=== PATIENT | female | born 1995 | race African-American/Black ===

== ENCOUNTER 2019-10-31 22:12 | Emergency (ER) | payer OTHER ==
[2019-10-31 22:34] VITALS: BP 135/75
--- NOTE | 2019-11-01 00:36 | ER Document Report ---
HPI - HPI Time Seen by Provider: 10/31/19 22:55 Pain Level: 1 Notes: Otherwise healthy 24-year-old female presenting to the emergency department with concern for scratchiness to her throat. Patient reports she ate dinner tonight including shrimp and then developed scratchiness in her throat. She states she has eaten shrimp multiple times in the past and has no known allergies. She states that she told her about her scratchiness to her throat or her insisted she come to the emergency department. Patient has no difficulty swallowing, difficulty speaking no hives and no acute complaints at this time. - ROS Systems Reviewed and Negative: Yes All other systems reviewed and negative - EENT Notes: Throat feels scratchy - REPRODUCTIVE Reproductive: DENIES: : Past Medical History - General Information source: Patient - Social History Smoking Status: Current Every Day Smoker Frequency of alcohol use: None Drug Abuse: None Family History: Reviewed & Not Pertinent Patient has homicidal ideation: No - Medical History Medical History: Negative Surgical Hx: Negative Vertical Provider Document - CONSTITUTIONAL Notes: PHYSICAL EXAMINATION: GENERAL: Well-appearing, well-nourished and in no acute distress. HEAD: Atraumatic, normocephalic. EYES: Pupils equal round extraocular movements intact, conjunctiva are normal. ENT: Nares patent, oropharynx mildly erythematous but without exudates or tonsillar swelling. Uvula midline, no posterior oropharynx swelling noted. NECK: Normal range of motion LUNGS: No respiratory distress, lung sounds clear and equal bilaterally. Musculoskeletal: Normal range of motion NEUROLOGICAL: Normal speech, normal gait. PSYCH: Normal mood, normal affect. SKIN: Warm, Dry, normal turgor, no rashes or lesions noted. Course - Re-evaluation Re-evalutation: Patient appears well, nontoxic. Rapid strep is negative. This does not appear to be an acute allergic reaction. I did advise patient regarding taking Benadryl in case she develops a rash or hives. Strict ED return precautions in case she develops difficulty swallowing or hoarse voice. Patient verbalizes understanding and agreement this plan. - Vital Signs Vital signs: Temp Pulse Resp BP Pulse Ox 98.8 F 83 20 135/75 H 99 10/31/19 22:32 10/31/19 22:32 10/31/19 22:32 10/31/19 22:32 10/31/19 22:32 Discharge - Discharge Clinical Impression: Sore throat Condition: Stable Disposition: HOME, SELF-CARE Additional Instructions: The rapid strep was negative. A throat culture is pending. Please take Benadry l 50 mg every 6 hours if you start to develop any symptoms of allergic reaction. Please return to the emergency department with any new or worsening symptoms.
--- NOTE | 2019-11-01 01:07 | EKG REPORT ---
SEVERITY:- BORDERLINE ECG - SINUS RHYTHM INFERIOR Q WAVES, PROBABLY NORMAL VARIATION BORDERLINE T ABNORMALITIES, ANTERIOR LEADS : Confirmed by: Micaela Farmer MD 01-Nov-2019 01:06:51
== END 2019-11-01 00:40 | disposition home or self-care (01) ==
LOC: ER 22:12
DX: J02.9 Acute pharyngitis, unspecified (principal); F17.200 Nicotine dependence, unspecified, uncomplicated
CPT/HCPCS: 87070; 87880; 93005; 93010; 99283

== ENCOUNTER 2020-01-28 09:25 | Emergency (ER) | payer OTHER ==
--- NOTE | 2020-01-28 09:40 | ER Document Report ---
ED General - General Stated Complaint: SHORTNESS OF BREATH Time Seen by Provider: 01/28/20 09:39 - HPI Notes: 24-year-old female with a history of asthma presents to the emergency room with complaints of worsening shortness of breath that was diagnosed on January 23 with COVID, was treated with azithromycin and prednisone. Patient states that she was experiencing some shortness of breath on Thursday, she was then diagnosed with COVID-19. patient states that she is noticed some increased shortness of breath at night, states her home nebulizer is in [place] and she does not have a rescue inhaler on her person because her prescription ran out. patient is alternate between Tylenol and ibuprofen as well as prednisone and azithromycin. She states she came to the emergency room for a breathing treatment that further evaluation of her shortness of breath. Patient denies being on control, no recent surgery, patient is not undergoing any cancer treatment, denies any history of clotting disorders factor V, denies , recent periods of immobilization or long car rides or flights, denies any bilateral calf pain no history of PEs. Denies fevers, chills, chest pain,palpitations, dyspnea, nausea, vomiting, diarrhea, abdominal pain, hematuria,blurred vision, double vision, loss of vision, speech changes, LH, dizziness, syncope, headaches, wheezing, ST, URI, neck pain, weakness, bowel or bladder dysfunction, saddle anesthesia, numbness or tingling in bilateral upper or lower extremities equally, muscle paralysis, weakness in bilateral upper or lower extremities equally or rash. Denies IV drug use. MEDICATIONS: I agree with the patient medications as charted by the RN. ALLERGIES: I agree with the allergies as charted by the RN. PAST MEDICAL HISTORY/PAST SURGICAL HISTORY: Reviewed and agree as charted by RN. SOCIAL HISTORY: Reviewed and agree as charted by RN. FAMILY HISTORY: No significant familial comorbid conditions directly related to patient complaint EXAM: Reviewed vital signs as charted by RN. REVIEW OF SYSTEMS:reviewed vital signs by RN CONSTITUTIONAL : Denies fever, chills, or sweats. Denies recent illness. EENT: Denies eye, ear, throat, or mouth pain or symptoms. Denies nasal or sinus congestion or discharge. Denies throat, tongue, or mouth swelling or difficulty swallowing. CARDIOVASCULAR: Denies chest pain. Denies palpitations or racing or irregular heart beat. Denies ankle edema. RESPIRATORY: Denies cough, cold, or chest congestion. reports shortness of breath. Denies difficulty breathing, or wheezing. GASTROINTESTINAL: Denies abdominal pain or distention. Denies nausea, vo miting, or diarrhea. Denies blood in vomitus, stools, or per rectum. Denies black, tarry stools. Denies constipation. GENITOURINARY: Denies difficulty urinating, painful urination, burning, frequ ency, blood in urine, or discharge. FEMALE GENITOURINARY: Denies vaginal bleeding, heavy or abnormal periods, irregular periods. Denies vaginal discharge or odor. MUSCULOSKELETAL: Denies back or neck pain or stiffness. Denies joint pain or swelling. SKIN: Denies rash, lesions or sores. HEMATOLOGIC : Denies easy bruising or bleeding. LYMPHATIC: Denies swollen, enlarged glands. NEUROLOGICAL: Denies confusion or altered mental status. Denies passing out or loss of consciousness. Denies dizziness or lightheadedness. Denies headache. Denies weakness or paralysis or loss of use of either side. Denies problems with gait or speech. Denies sensory loss, numbness, or tingling. Denies seizures. PSYCHIATRIC: Denies anxiety or stress. Denies depression, suicidal ideation, or homicidal ideation. ALL OTHER SYSTEMS REVIEWED AND NEGATIVE. PHYSICAL EXAMINATION: GENERAL: Well-appearing, well-nourished and in no acute distress. HEAD: Atraumatic, normocephalic. EYES: Pupils equal round and reactive to light, extraocular movements intact, conjunctiva are normal. ENT: Nares patent, oropharynx clear without exudates. Moist mucous membranes. NECK: Normal range of motion, supple without lymphadenopathy LUNGS: Breath sounds clear to auscultation bilaterally and equal. No wheezes rales or rhonchi. HEART: Regular rate and rhythm without murmurs ABDOMEN: Soft, nontender, nondistended abdomen. No guarding, no rebound. No masses appreciated. Female : deferred Musculoskeletal: Normal range of motion, no pitting or edema. No cyanosis. NEUROLOGICAL: Cranial nerves grossly intact. Normal speech, normal gait. Normal sensory, motor exams PSYCH: Normal mood, normal affect. SKIN: Warm, Dry, normal turgor, no rashes or lesions noted. Dictation was performed using [employer] recognition software - Related Data Allergies/Adverse Reactions: No Known Allergies Allergy (Unverified 01/28/20 10:39) Past Medical History - General Information source: Patient - Social History Smoking Status: Never Smoker Family History: Reviewed & Not Pertinent Physical Exam - Vital signs Vitals: Temp Pulse Resp BP Pulse Ox 98.5 F 58 L 18 120/79 100 01/28/20 09:39 01/28/20 09:39 01/28/20 09:39 01/28/20 09:39 01/28/20 09:39 Course - Re-evaluation Re-evalutation: 01/28/20 10:40 Afebrile vitals stable, oxygenation at 100%. Nurses notes reviewed. On auscultation of lungs, breath sounds clear in all lobes. Patient stated that she would like to get a breathing treatment because she does not have her machine at home its in [place]. Patient does not have a rescue inhaler. Discussed with patient that we will prescribe her a rescue inhaler today, also give her a shot of Decadron for her concern that her asthma may flare up with her COVID diagnosis. Discussed with patient that she should be propped up at nighttime, use rescue inhaler when she is having any coughing fits, alternating Tylenol ibuprofen continue taking her azithromycin and her prednisone which was prescribed for her COVID diagnosis. Please note that clinical decision making for this patient was made during the 2019 pandemic of novel coronavirus which caused a significant strain on the healthcare system including at this particular facility. Criteria for admission, discharge and level of care decisions as well as treatment decisions have necessarily changed. Patient states that she did feel better after having her breathing treatment. Her chest x-ray was negative for any acute findings of pneumonia, pneumothorax, atelectasis etc. after performing a Medical Screening Examination, I estimate there is LOW risk for RUPTURED ESOPHAGUS, PNEUMOTHORAX, PULMONARY EMBOLISM, ACUTE CORONARY SYNDROME, OR THORACIC AORTIC DISSECTION, thus I consider the discharge disposition reasonable. I have reevaluated this patient multiple times and no significant life threatening changes are noted. The patient and I have discussed the diagnosis and risks, and we agree with discharging home with close follow-up. We also discussed returning to the Emergency Department immediately if new or worsening symptoms occur. We have discussed the symptoms which are most concerning (e.g., bloody sputum, worsening pain or shortness of breath) that necessitate immediate return. - Vital Signs Vital signs: Temp Pulse Resp BP Pulse Ox 98.5 F 58 L 18 120/79 100 01/28/20 09:39 01/28/20 09:39 01/28/20 09:39 01/28/20 09:39 01/28/20 09:39 Discharge - Discharge Clinical Impression: COVID-19, SOB (shortness of breath) Condition: Stable Disposition: HOME, SELF-CARE Instructions: COVID-19 Guidance for Persons Under Investigation Additional Instructions: You tested positive for COVID-19 this past Thursday. You were prescribed azithromycin and prednisone, please continue to take this medication. As were clear when less than 2 with a stethoscope. your chest x-ray today was normal. You were given a breathing treatment as well as a shot of Decadron 10 mg to help with any inflammation and with your history of asthma you are prescribed a take- home rescue inhaler. your vitals were normal your oxygenation was at 100%. Please continue taking the medications that were prescribed to you, the azithromycin and the prednisone. Please self quarantine, social distance and lotions regularly. When you become asymptomatic with your symptoms, you do need to negative COVID 24 hours to be considered recovered from the COVID virus as well as following up with your primary care within the next 24 to 48 hours. Return immediately for any new or worsening symptoms. Follow up with primary care provider, call tomorrow to make followup appointment. Prescriptions: Albuterol Sulfate [Proair Respiclick] 90 mcg IH Q4HP PRN #1 [email or web address] PRN Reason: Forms: Return to Work Referrals: TOBI PRESTON MD [Primary Care Provider] - 01/30/20
--- NOTE | 2020-01-28 10:27 | RADIOLOGY REPORT (SQ) ---
EXAM DESCRIPTION: CHEST SINGLE VIEW IMAGES COMPLETED DATE/TIME: 01/28/2020 10:17 am REASON FOR STUDY: SOB COMPARISON: None. EXAM PARAMETERS: NUMBER OF VIEWS: One view. TECHNIQUE: Single frontal radiographic view of the chest acquired. RADIATION DOSE: NA LIMITATIONS: None. FINDINGS: LUNGS AND PLEURA: No opacities, masses or pneumothorax. No pleural effusion. MEDIASTINUM AND HILAR STRUCTURES: No masses. Contour normal. HEART AND VASCULAR STRUCTURES: Heart normal in size. Normal vasculature. BONES: No acute findings. HARDWARE: None in the chest. OTHER: No other significant finding. IMPRESSION: NO ACUTE RADIOGRAPHIC FINDING IN THE CHEST. TECHNICAL DOCUMENTATION: JOB ID: [id number] [employer]- All Rights Reserved Reading location - IP/workstation name: [email or web address]
[2020-01-28] MEDS ORDERED: IPRATROPIUM/ALBUTEROL 0.5-2.5 MG/3 ML AMPUL NEB ONE (10:35)
[2020-01-28] MEDS ORDERED: DEXAMETHASONE SOD PHOS INJ 10 MG/1 ML VIAL IM ONE (10:35)
[2020-01-28 12:36] VITALS: BP 124/78
== END 2020-01-28 11:40 | disposition home or self-care (01) ==
LOC: ER 09:25
DX: U07.1 COVID-19 (principal); R06.02 Shortness of breath; Z88.8 Allergy status to other drugs, medicaments and biological substances
CPT/HCPCS: 94640; 99284; 96372; 71045; J1100